=== PATIENT | male | born 1955 | race Caucasian/White ===

== ENCOUNTER 2021-10-31 12:16 | Emergency (ER) | payer BC ==
[~2021-10-31] VITALS: Ht 178 cm; Wt 112.0 kg
--- OUTSIDE RECORDS SUMMARY | 2021-10-31 12:21 | XMS REPORT | Clinical Summary ---
Author Author [facility] Organization [facility] Address Unknown Phone Unavailable Care Team Providers Care Director Geophysical Laboratory Name Role Phone PCP Unavailable Source Comments [facility] ([facility]) documents do [facility] appear in the [facility] Allergies Not on File Medications Please verify current medications with patient. Not on file Active Problems Not on file Social History Date Tobacco Use Types Packs/Day Years Used Never Assessed Sex Assigned at Date Recorded Not on file Last Filed Vital Signs Not on file Plan of Treatment Health Maintenance Due Date Last Done Comments CT Colonography 1955 Colonoscopy 1955 Colorectal Cancer 1955 Screening DNA-based stool test 1955 (Cologuard) Lipid Panel 1955 Sigmoidoscopy 1955 gFOBT or FIT 1955 COVID-19 Vaccine (1) 1967 Pneumococcal Vaccine: 65+ 2020 Years (1 of 1 - PPSV23) Influenza Vaccine (#1) 2021 HPV Vaccine Aged Out No longer eligible based on patient's age to complete this topic Hepatitis A Vaccine Aged Out No longer eligible based on patient's age to complete this topic Hepatitis B Vaccine Aged Out No longer eligible based on patient's age to complete this topic Hib Vaccine Aged Out No longer eligible based on patient's age to complete this topic IPV Vaccine Aged Out No longer eligible based on patient's age to complete this topic Meningococcal Vaccine Aged Out No longer eligib le based on patient's age to (MCV4) complete this topic Rotavirus Vaccine Aged Out No longer eligible based on patient's age to complete this topic Results Not on filefrom Last 3 Months
[2021-10-31] MEDS ORDERED: KETOROLAC 30 MG/ML VIAL IVP STA (12:34)
[2021-10-31] MEDS ORDERED: NS IV 1000 ML 1,000 ML IV STA (12:34)
--- NOTE | 2021-10-31 12:43 | ED Back Pain ---
General Chief Complaint: Back Problems Stated Complaint: LWR BACK PAIN Nursing Triage Note: RIGHT LOWER BACK PAIN THAT RADIATES TO HIS RIGHT FLANK AND GROIN AREA. Source of Information: Patient History of Present Illness Date Seen by Provider: Oct 31, 2021 Time Seen by Provider: 12:18 Initial Comments 66-year-old male presenting with complaints of right flank pain that started this morning. He did try taking some Tylenol around 9:30 AM with no significant improvement. He felt like the pain was better after he took a hot shower. He had some similar symptoms about 10 years ago from muscle spasms in his back. He denies any known trauma or direct injury to his back that would have triggered this. He has had no fever or chills, nausea, vomiting, blood in his stools, constipation, diarrhea, pain with urination, blood in his urine. He has been eating and drinking normally. He states that there is nothing that makes the pain better or worse. He is rating his pain at a 7 out of 10 but says that he can handle a lot of pain and that for anyone else it would probably be at least a 10 out of 10. He reports it feels like the sensation that he needs to have a bowel movement Location: Other (right lower back and flank wrapping around his flank and side) Timing/Duration: 4-6 Hours Severity: Moderate Pain/Injury Location: Back (right flank) Radiation: Other (right flank) Method of Injury: Unknown Modifying Factors: Improves With Other (hot shower helped) Associated Symptoms: No muscle spasms, No fever, No weakness, No numbness in legs/feet, No tingling in legs/feet, No sensory/motor loss; lower back pain (right lower back and flank); No loss of bladder control, No loss of bowel control Allergies and Home Medications Allergies Coded Allergies: indomethacin (Verified Allergy, Intermediate, 10/31/21) shakey and jittery lisinopril (Verified Allergy, Unknown, 10/31/21) Patient Home Medication List Home Medication List Reviewed: Yes Hydrocodone/Acetaminophen (Hydrocodone-Acetamin 5-325 mg) 1 Each Tablet, 1 TAB PO Q4H PRN for PAIN-SEVERE (8-10) Prescribed by: NATE LEIVA on 10/31/21 6593 Tamsulosin HCl (Flomax) 0.4 Mg Cap, 0.4 MG PO DAILY Prescribed by: NATE LEIVA on 10/31/21 1424 Review of Systems Constitutional: No chills, No fever EENTM: no symptoms reported Respiratory: no symptoms reported Cardiovascular: no symptoms reported Gastrointestinal: No abdominal pain, No constipation, No diarrhea, No hemate mesis, No heartburn, No loss of appetite, No melena, No nausea, No vomiting Genitourinary: No decreased output, No dysuria, No hematuria Musculoskeletal: see HPI Skin: No rash Psychiatric/Neurological: Denies Headache, Denies Numbness, Denies Paresthesia Past Fxztuzy-Errktq-Chrtzi Hx Patient Social History Tobacco Use?: Yes Tobacco type used: Cigarettes Smoking Status: Former Smoker Use of E-Cig and/or Vaping dev: No Substance use?: No Alcohol Use?: Yes Alcohol type: Beer Alcohol Frequency: Once in a while Pt feels they are or have been: No Immunizations Up To Date Influenza Vaccine Up-to-Date: No; Not Current First/Initial COVID19 Vaccinat: 01/2021 COVID19 Vaccine 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 oz. kg; 35.00 BMI Method: General Appearance: No Apparent Distress, Obese HEENT: PERRL/EOMI, Pharynx Normal Neck: Full Range of Motion, Normal Inspection, Non Tender, Supple Cardiovascular: Regular Rate, Rhythm, Normal Peripheral Pulses Respiratory: Chest Non Tender, Lungs Clear, Normal Breath Sounds, No Accessory Muscle Use, No Respiratory Distress Gastrointestinal: Normal Bowel Sounds, No Pulsatile Mass, Non Tender, Soft Back: No CVA Tenderness, No Vertebral Tenderness, Other (complaint of pain to right lower back and flank but not tender to palpation) Extremity: Normal Capillary Refill, Normal Inspection, No Pedal Edema Neurologic/Psychiatric: Alert, Oriented x3, school adjustment counselor II-XII Norm as Tested Skin: Normal Color, Warm/Dry Progress/Results/Core Measures Results/Orders Lab Results Laboratory Tests Test 10/31/21 12:25 10/31/21 13:46 Range/Units White Blood Count 13.9 H 4.3-11.0 10^3/uL Red Blood Count 5.04 4.30-5.52 10^6/uL Hemoglobin 16.0 13.3-17.7 g/dL Hematocrit 47 40-54 % Mean Corpuscular Volume 93 80-99 fL Mean Corpuscular Hemoglobin 32 25-34 pg Mean Corpuscular Hemoglobin Concent 34 32-36 g/dL Red Cell Distribution Width 12.7 10.0-14.5 % Platelet Count 298 130-400 10^3/uL Mean Platelet Volume 9.7 9.0-12.2 fL Immature Granulocyte % (Auto) 0 % Neutrophils (%) (Auto) 53 42-75 % Lymphocytes (%) (Auto) 40 12-44 % Monocytes (%) (Auto) 6 0-12 % Eosinophils (%) (Auto) 1 0-10 % Basophils (%) (Auto) 0 0-10 % Neutrophils # (Auto) 7.3 1.8-7.8 X 10^3 Lymphocytes # (Auto) 5.5 H 1.0-4.0 X 10^3 Monocytes # (Auto) 0.8 0.0-1.0 X 10^3 Eosinophils # (Auto) 0.1 0.0-0.3 10^3/uL Basophils # (Auto) 0.1 0.0-0.1 10^3/uL Immature Granulocyte # (Auto) 0.0 0.0-0.1 10^3/uL Sodium Level 135 135-145 MMOL/L Potassium Level 4.2 3.6-5.0 MMOL/L Chloride Level 100 98-107 MMOL/L Carbon Dioxide Level 24 21-32 MMOL/L Anion Gap 11 5-14 MMOL/L Blood Urea Nitrogen 25 H 7-18 MG/DL Creatinine 1.33 H 0.60-1.30 MG/DL Estimat Glomerular Filtration Rate 59 BUN/Creatinine Ratio 19 Glucose Level 137 H 70-105 MG/DL Calcium Level 9.3 8.5-10.1 MG/DL Corrected Calcium 9.0 8.5-10.1 MG/DL Total Bilirubin 0.5 0.1-1.0 MG/DL Aspartate Amino Transf (AST/SGOT) 26 5-34 U/L Alanine Aminotransferase (ALT/SGPT) 40 0-55 U/L Alkaline Phosphatase 100 40-136 U/L Total Protein 7.7 6.4-8.2 GM/DL Albumin 4.4 3.2-4.5 GM/DL Lipase 27 8-78 U/L Urine Color BROWN H Urine Clarity TURBID Urine pH 5.5 5-9 Urine Specific [place] >=1.030 1.016-1.022 Urine Protein TRACE H NEGATIVE Urine Glucose (UA) NEGATIVE NEGATIVE Urine Ketones NEGATIVE NEGATIVE Urine Nitrite NEGATIVE NEGATIVE Urine Bilirubin 1+ H NEGATIVE Urine Urobilinogen 0.2 < = 1.0 MG/DL Urine Leukocyte Esterase TRACE H NEGATIVE Urine RBC (Auto) 3+ H NEGATIVE Urine RBC 50-100 H /HPF Urine WBC 2-5 /HPF Urine Squamous Epithelial Cells RARE /HPF Urine Crystals NONE /LPF Urine Bacteria FEW H /HPF Urine Casts PRESENT /LPF Urine Hyaline Casts 0-2 H /LPF Urine Mucus SMALL H /LPF Urine Culture Indicated YES My Orders Orders - NATE LEIVA MD Ua Culture If Indicated (10/31/21 12:19) Comprehensive Metabolic Panel (10/31/21 12:34) Lipase (10/31/21 12:34) Ed Iv/Invasive Line Start (10/31/21 12:34) Cbc With Automated Diff (10/31/21 12:34) Ct Abdomen/Pelvis Wo (10/31/21 12:34) Ns Iv 1000 Ml (Sodium Chloride 0.9%) (10/31/21 12:34) Ketorolac Injection (Toradol Injection) (10/31/21 12:34) Orphenadrine Inj (Ed Only) (Norflex Inje (10/31/21 12:45) Strain Urine (10/31/21 13:23) Tamsulosin Capsule (Flomax Capsule) (10/31/21 13:47) Urine Culture (10/31/21 13:46) Medications Given in ED Current Medications Medications Dose Ordered Sig/Salma Route Start Time Stop Time Status Last Admin Dose Admin Orphenadrine Citrate 60 mg ONCE ONCE IVP 10/31/21 12:45 10/31/21 12:46 DC 10/31/21 12:47 60 MG Vital Signs/I&O 10/31/21 10/31/21 12:33 14:23 Temp 35.7 36.5 Pulse 78 78 Resp 18 16 B/P (MAP) 200/102 (134) 154/84 Pulse Ox 97 99 O2 Delivery Room Air Room Air Blood Pressure Mean: 134 Progress Progress Note #1: Progress Note Check urine, blood work, CT scan of the abdomen and pelvis without contrast to look for signs of a kidney stone, colitis, diverticulitis, obstruction, musculoskeletal issue with the back. Give IV fluids for hydration, Toradol for pain and inflammation, Norflex for possible muscle spasms since he reports having pain like this 10 years ago with spasms in his back. Progress Note #2: Progress Note CBC showed mild elevation of his white blood cell count to 13.9. His chemistry panel did not show acute significant abnormality. He had findings on his CT scan of the 5 mm kidney stone in the proximal ureter. Updated patient of the findings and he stated that his pain had resolved with treatment. Will obtain a urinalysis to ensure that he does not need antibiotics for UTI since he had a mild elevation of his white blood cell count. Otherwise reviewed follow-up and return precautions as well as management of kidney stone and pain from kidney stone. Also notified that he did have some signs of a small fat-containing umbilical and left inguinal hernia. Progress Note #3: Progress Note Urine is concentrated with blood but only trace amount of bacteria and LE so less likely to be infection. Will defer antibiotics unless he has culture showing he needs one added. Advise him to push fluids and stay better hydrated. Follow up with Urology or clinic for continued symptoms/concerns. Diagnostic Imaging Diagonstic Imaging: CT Plain Films/CT/US/NM/MRI: abdomen, pelvis Comments NAME: [facility] REC#: [id number] PT STATUS: REG ER : 1955 PHYSICIAN: NATE LEIVA MD ADMIT DATE: 10/31/21/ER FS Draft Date of Exam:10/31/21 CT ABDOMEN/PELVIS WO PROCEDURE: CT abdomen and pelvis without contrast. TECHNIQUE: Multiple contiguous axial images were obtained through the abdomen and pelvis without the use of intravenous contrast. Auto Exposure Controls were utilized during the CT exam to meet ALARA standards for radiation dose reduction. INDICATION: Right flank pain. No prior studies are available for comparison. Lung bases are clear. Liver and gallbladder are unremarkable. The pancreas and spleen are unremarkable. No adrenal mass is detected. No renal calculi are seen. There is a 5 mm calculus located within the proximal right ureter producing mild hydronephrosis. There is perinephric inflammatory stranding on the right as well. No other ureteral calculi are seen. No bladder calculi are detected. Aorta and iliac vessels are heavily calcified. Bowel loops show diverticulosis of the descending and sigmoid colon but no evidence of acute diverticulitis. No free fluid present. There is a fat-containing left inguinal hernia as well as a fat-containing umbilical hernia. IMPRESSION: 1. 5 mm proximal right ureteric calculus producing mild hydronephrosis and perinephric stranding. 2. Uncomplicated diverticulosis. 3. Fat-containing umbilical and left inguinal hernia. Dictated on workstation # [id number] Dict: 10/31/21 1302 Trans: 10/31/21 1309 [facility] [id number] Interpreted by: RITU GIRARD MD Electronically signed by: Reviewed: Reviewed by Me Departure Impression Primary Impression: Renal colic on right side Additional Impressions: Acute right flank pain Calculus of proximal right ureter Kidney stone on right side Umbilical hernia without obstruction or gangrene Inguinal hernia of left side without obstruction or gangrene Disposition: HOME, SELF-CARE Condition: Stable Departure-Patient Inst. Decision time for Depature: 14:25 Referrals: SHELBY JAMES APRN (PCP) Primary Care Physician [facility] ([place]) Primary Care Physician ELA AYON MD Patient Instructions: Flank Pain ED, Opioids for Short-Term Treatment of Pain ED, Kidney Stone, Adult ED, Kidney Stone Diet, How to Strain Your Urine, Umbilical Hernia, Adult Add. Discharge Instructions: Stay well-hydrated and drink more water to help hydrate your kidneys and flush the stone through. Once of the best ways to help this stone pass and help prevent more stones from forming is staying well hydrated. A way to gauge your hydration is to watch the color of your urine. The darker colored it is the more you need to drink water and fluids. The rn lactation consultant colored the urine the better hydrated you are and you are doing well with keeping up with your hydration. Strain your urine to see when the stone passes. If your pain is not improving over the next week or if you have fever that develops over 101 Fahrenheit, uncontrolled vomiting, pain becomes acutely worse and is not improving with medications then you should be rechecked either in the clinic or ER. Follow-up through the urology clinic if your symptoms are not improving over the next 7 to 10 days Take Acetaminophen and Ibuprofen if needed for pain. If having severe pain and you are not driving or operating heavy equipment then you could take the Hydrocodone for severe pain. Take the Tamsulosin (Flomax) to help relax the ureter and make it easier for the kidney stone to pass. All discharge instructions reviewed with patient and/or family. Voiced understanding. Scripts Hydrocodone/Acetaminophen (Hydrocodone-Acetamin 5-325 mg) 1 Each Tablet 1 TAB PO Q4H PRN for PAIN-SEVERE (8-10) for 4 Days, #24 TAB 0 Refills Prov: NATE LEIVA MD 10/31/21 Tamsulosin HCl (Flomax) 0.4 Mg Cap 0.4 MG PO DAILY for Renal Colic for 7 Days, #7 CAP 0 Refills Prov: NATE LEIVA MD 10/31/21 NATE LEIVA MD Oct 31, 2021 12:43
[2021-10-31 12:45] LABS: BASOPHILS % (AUTO) 0 % (0-10); EOSINOPHILS % (AUTO) 1 % (0-10); HEMATOCRIT 47 % (40-54); LYMPHOCYTES % (AUTO) 40 % (12-44); MEAN CORPUSCULAR HEMOGLOBIN 32 pg (25-34); MEAN CORPUSCULAR HGB CONC 34 g/dL (32-36); MEAN CORPUSCULAR VOLUME 93 fL (80-99); MEAN PLATELET VOLUME 9.7 fL (9.0-12.2); MONOCYTES % (AUTO) 6 % (0-12); NEUTROPHILS % (AUTO) 53 % (42-75); PLATELET COUNT 298 10^3/uL (130-400); WHITE BLOOD COUNT 13.9 10^3/uL (4.3-11.0)
[2021-10-31] MEDS ORDERED: ORPHENADRINE 60 MG/2 ML (NORFLEX) AMP (ED ONLY) IVP ONE (12:45)
[2021-10-31 12:46] LABS: BASOPHILS # (AUTO) 0.1 10^3/uL (0.0-0.1); EOSINOPHILS # (AUTO) 0.1 10^3/uL (0.0-0.3); LYMPHOCYTES # (AUTO) 5.5 X 10^3 (1.0-4.0); MONOCYTES # (AUTO) 0.8 X 10^3 (0.0-1.0); NEUTROPHILS # (AUTO) 7.3 X 10^3 (1.8-7.8)
[2021-10-31 13:00] LABS: ALBUMIN 4.4 GM/DL (3.2-4.5); BILIRUBIN,TOTAL 0.5 MG/DL (0.1-1.0); CALCIUM 9.3 MG/DL (8.5-10.1); CREATININE SERUM 1.33 MG/DL (0.60-1.30); POTASSIUM 4.2 MMOL/L (3.6-5.0); TOTAL PROTEIN 7.7 GM/DL (6.4-8.2)
--- NOTE | 2021-10-31 13:11 | Diagnostic Imaging Report ---
PROCEDURE: CT abdomen and pelvis without contrast. TECHNIQUE: Multiple contiguous axial images were obtained through the abdomen and pelvis without the use of intravenous contrast. Auto Exposure Controls were utilized during the CT exam to meet ALARA standards for radiation dose reduction. INDICATION: Right flank pain. No prior studies are available for comparison. Lung bases are clear. Liver and gallbladder are unremarkable. The pancreas and spleen are unremarkable. No adrenal mass is detected. No renal calculi are seen. There is a 5 mm calculus located within the proximal right ureter producing mild hydronephrosis. There is perinephric inflammatory stranding on the right as well. No other ureteral calculi are seen. No bladder calculi are detected. Aorta and iliac vessels are heavily calcified. Bowel loops show diverticulosis of the descending and sigmoid colon but no evidence of acute diverticulitis. No free fluid present. There is a fat-containing left inguinal hernia as well as a fat-containing umbilical hernia. IMPRESSION: 1. 5 mm proximal right ureteric calculus producing mild hydronephrosis and perinephric stranding. 2. Uncomplicated diverticulosis. 3. Fat-containing umbilical and left inguinal hernia. Dictated by: Dictated on workstation # [id number]
[2021-10-31] MEDS ORDERED: TAMSULOSIN 0.4 MG (FLOMAX) CAP PO STA (13:47)
[2021-10-31 14:02] LABS: BILIRUBIN,URINE 1+ (NEGATIVE); CLARITY,URINE TURBID; GLUCOSE, URINE (UA) NEGATIVE (NEGATIVE); KETONES,URINE NEGATIVE (NEGATIVE); LEUKOCYTE ESTERASE ,URINE TRACE (NEGATIVE); NITRITE,URINE NEGATIVE (NEGATIVE); PH,URINE 5.5 (5-9); PROTEIN,URINE TRACE (NEGATIVE)
[2021-10-31 14:17] LABS: COLOR,URINE BROWN; RBC,URINE 50-100 /HPF
[2021-10-31 14:18] LABS: BACTERIA,URINE FEW /HPF; HYALINE CASTS, URINE 0-2 /LPF; SQUAMOUS EPITHELIAL CELL,UR RARE /HPF
[2021-10-31 14:23] VITALS: BP 154/84
[2021-10-31] MEDS ORDERED: TMSL.4C PO (14:24)
[2021-10-31] MEDS ORDERED: ACHD5005 PO (14:24)
== END 2021-10-31 14:31 | disposition home or self-care (01) ==
LOC: ER FS 12:19
DX: N13.2 Hydronephrosis with renal and ureteral calculous obstruction (principal); K42.9 Umbilical hernia without obstruction or gangrene; K40.90 Unilateral inguinal hernia, without obstruction or gangrene, not specified as recurrent; E66.9 Obesity, unspecified; Z68.35 Body mass index [BMI] 35.0-35.9, adult; Z87.891 Personal history of nicotine dependence
CPT/HCPCS: 36415; 74176; 80053; 81000; 83690; 85025; 87088

== ENCOUNTER → 2022-05-15 | Outpatient (CLI) | payer BC ==
[~2022-05-15] MED LIST: ACHD5005 PO; TMSL.4C PO
--- NOTE | 2022-05-15 09:45 | Diagnostic Imaging Report ---
PROCEDURE: CT abdomen and pelvis without contrast. TECHNIQUE: Multiple contiguous axial images were obtained through the abdomen and pelvis without the use of intravenous contrast. Auto Exposure Controls were utilized during the CT exam to meet ALARA standards for radiation dose reduction. INDICATION: Right flank pain Lung bases are clear. Liver appears normal. There appears to be small calculus in the gallbladder. Pancreas appears normal. Spleen is not enlarged. Adrenals are normal. Kidneys appear normal. There is aortic atherosclerosis. There is a fatty umbilical hernia. Small bowel is not dilated. The appendix is not seen. There is diverticulosis of the colon. There is no evidence of diverticulitis. Urinary bladder is normal. There is a fatty left inguinal hernia. IMPRESSION: Uncomplicated diverticulosis of the colon. Fatty umbilical hernia and fatty left inguinal hernia. Cholecystolithiasis. Aortic atherosclerosis. No acute abnormalities seen. Dictated by: Dictated on workstation # [id number]
== END ==
LOC: RAD FS 09:12
PROVIDERS: ATTEND Nurse Practitioner Family
DX: K57.30 Diverticulosis of large intestine without perforation or abscess without bleeding (principal); K42.9 Umbilical hernia without obstruction or gangrene; K40.90 Unilateral inguinal hernia, without obstruction or gangrene, not specified as recurrent; K80.20 Calculus of gallbladder without cholecystitis without obstruction; I25.10 Atherosclerotic heart disease of native coronary artery without angina pectoris; Z87.442 Personal history of urinary calculi
CPT/HCPCS: 74176